=== PATIENT | female | born 1960 | race Caucasian/White ===

== ENCOUNTER 2017-04-04 10:30 | Day surgery (SDC) | payer OTHER ==
[~2017-04-04 10:30] MED LIST: NS 500 ML IV 500 ML IV ONE; VERSED ONE
[2017-04-04] MEDS ORDERED: VERSED ONE (10:46)
[2017-04-04] MEDS: TETRACAINE 0.5% OPHTH 1 DOSE AFFEYE ONE ×2 (10:50→13:00)
[2017-04-04] MEDS ORDERED: VIGAMOX 0.5% OPHTH 1 DOSE AFFEYE ONE ×5 (10:55→13:22)
[2017-04-04] MEDS ORDERED: NS 1/2 1000 ML IV 1,000 ML IV ONE (11:05)
[2017-04-04] MEDS ORDERED: PROLENSA OPHTH 1 DOSE AFFEYE ONE (11:06)
[2017-04-04] MEDS ORDERED: ALPHAGAN-P OPHTH 1 DOSE AFFEYE ONE (11:07)
[2017-04-04] MEDS ORDERED: MYDRIACIL OPHTH 1 DOSE AFFEYE ONE ×3 (11:08→11:10)
[2017-04-04] MEDS ORDERED: AK-DILATE 2.5% OPHTH 1 DOSE OP ONE ×3 (11:08→11:10)
[2017-04-04] MEDS ORDERED: CYCLOGYL 1% OPHTH 1 DOSE OP ONE ×3 (11:08→11:10)
[2017-04-04] MEDS ORDERED: TETRACAINE 0.5% OPHTH 1 DOSE AFFEYE ONE ×3 (11:40→12:40)
[2017-04-04] MEDS ORDERED: AK-DILATE 10% OPHTH 1 DOSE AFFEYE ONE ×2 (11:40→12:43)
[2017-04-04] MEDS ORDERED: VERSED IVP ONE ×2 (11:41→12:41)
[2017-04-04] MEDS ORDERED: BETADINE OPHTH SOLN 5% EACHEYE ONE (13:00)
[2017-04-04] MEDS ORDERED: VANCOMYCIN HCL IR ONE ×3 (13:07)
[2017-04-04] MEDS ORDERED: ADRENALINE CHL INJ IM ONE (13:07)
[2017-04-04] MEDS ORDERED: XYLOCAINE-MPF 1% IJ ONE (13:07)
[2017-04-04] MEDS ORDERED: BSS PLUS IR ONE ×3 (13:07)
[2017-04-04] MEDS ORDERED: ADRENALINE CHL IR ONE ×3 (13:07)
[2017-04-04 14:03] VITALS: BP 120/70
== END 2017-04-04 13:45 | disposition home or self-care (01) ==
LOC: SURG1 10:30
PROVIDERS: ATTEND Ophthalmology
PROC: 08DK3ZZ Extraction of Left Lens, Percutaneous Approach (ICD-10-PCS; principal; 2017-04-04 15:15)
PROC: 08RK3JZ Replacement of Left Lens with Synthetic Substitute, Percutaneous Approach (ICD-10-PCS; principal; 2017-04-04 15:15)
DX: H25.12 Age-related nuclear cataract, left eye (principal); H25.012 Cortical age-related cataract, left eye; H25.042 Posterior subcapsular polar age-related cataract, left eye; H52.212 Irregular astigmatism, left eye
CPT/HCPCS: A9270; A4217; J0170; J2250; J3370